=== PATIENT | male | born 1980 | race Caucasian/White ===

== ENCOUNTER 2017-09-13 19:32 | Emergency (ER) | payer OTHER ==
--- NOTE | 2017-09-13 20:58 | XRAY Report ---
EXAM: LEFT THIRD DIGIT RADIOGRAPHY EXAM DATE: 09/13/2017 08:35 PM. CLINICAL HISTORY: Trauma, pain. COMPARISON: None. TECHNIQUE: 3 views. FINDINGS: Bones: Normal. No fracture or bone lesion. Joints: Normal. No subluxations. Soft Tissues: Unremarkable. IMPRESSION: Normal digit radiography. [facility] Referring Provider Line: [phone] SITE ID: [id number]
--- NOTE | 2017-09-13 21:53 | ED Physician Documentation ---
PD HPI UPPER EXT INJURY - Stated complaint Stated Complaint: FINGER LAC - Chief complaint Chief Complaint: Ext Problem - History obtained from History obtained from: Patient - History of Present Illness Location: Left, Finger (left 3rd digit) Type of injury: Crush (caught in closing door) Where injury occurred: Home Timing - onset: Enter time (18:00). No: Today Timing - details: Abrupt onset Pain level now: 8 Improved by: Rest Worsened by: Moving, Palpating Associated symptoms: Swelling, Discolored. No: Weakness, Numbness Recently seen: Not recently seen - Additonal information Additional information: patient is right-hand dominant. Review of Systems Musculoskeletal: reports: Extremity pain (left 3rd digit), Extremity swelling ( left 3rd digit) Neurologic: denies: Focal weakness, Numbness PD PAST MEDICAL HISTORY - Past Medical History Past Medical History: No - Present Medications Home Medications: Ambulatory Orders Medication Instructions Recorded Confirmed Cephalexin [Keflex] 500 mg PO Q6H 7 Days capsule 11/26/15 oxyCODONE/ACET 5/325 [Percocet 5 1 - 2 each PO Q6H PRN #14 tablet 09/13/17 mg/325 mg] - Allergies Allergies/Adverse Reactions: Allergies Allergy/AdvReac Type Severity Reaction Status Date / Time No Known Drug Allergies Allergy Verified 11/26/15 20:11 - Social History Does the pt smoke?: Yes Smoking Status: Current every day smoker Does the pt drink ETOH?: Yes - Immunizations Immunizations are current?: Yes PD ED PE NORMAL - Vitals Vital signs reviewed: Yes - General General: Alert and oriented X 3, No acute distress, Well developed/nourished PD ED PE EXPANDED - Extremities YIFAN UE/Hands Visual: 1 - bruising (echymosis at tip but no subungual involvement and nail itself it intact) 2 - laceration (avulsed skin on pad of finger, no exposed bone) Results - Vitals Vitals: Vital Signs - 24 hr 09/13/17 09/13/17 19:43 22:47 Temperature 36.4 C L 36.7 C Heart Rate 78 66 Respiratory 18 20 Rate Blood Pressure 144/92 H 124/75 O2 Saturation 97 98 Oxygen O2 Source Room air - Rads (name of study) xrays left third digit Radiology: Prelim report reviewed, See rad report PD MEDICAL DECISION MAKING - ED course Complexity details: reviewed results, re-evaluated patient, considered differential, d/w patient Departure - Departure Disposition: Home, Self Care Clinical Impression: Injury of tip of finger of left hand Condition: Good Instructions: ED Crush Injury Finger No Fx, ED Hypertension Poss Follow-Up: Tootie Dowell PA-C [Primary Care Provider] - Within 1 week Prescriptions: oxyCODONE/ACET 5/325 [Percocet 5 mg/325 mg] 1 - 2 each PO Q6H PRN #14 tablet PRN Reason: Pain Forms: Activity restrictions Discharge Date/Time: 09/13/17 22:53
[2017-09-13] MEDS ORDERED: BACITRACIN OINT TOP STA (22:20)
[2017-09-13] MEDS ORDERED: oxyCOD/ACETAMIN 5 MG/325 MG TABLET PO STA (22:20)
[2017-09-13] MEDS ORDERED: oxyCODONE/ACET 5/325 Prepack 4 PO STA (22:30)
[2017-09-13 22:47] VITALS: BP 124/75
== END 2017-09-13 22:53 | disposition home or self-care (01) ==
LOC: ED 19:32
DX: S61.213A Laceration without foreign body of left middle finger without damage to nail, initial encounter (principal); W23.0XXA Caught, crushed, jammed, or pinched between moving objects, initial encounter; F17.200 Nicotine dependence, unspecified, uncomplicated
CPT/HCPCS: 73140; 99283; A9270

== ENCOUNTER 2018-01-30 11:37 | Outpatient (CLI) | payer OTHER ==
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
== END 2018-01-30 11:38 | disposition home or self-care (01) ==
LOC: DI 11:37
PROVIDERS: ATTEND Physician Assistant
DX: M25.561 Pain in right knee (principal)

== ENCOUNTER 2018-08-30 12:35 | Outpatient (CLI) | payer SELFPAY ==
[2018-08-31 12:58] LABS: HIV AG/AB 4TH GEN NON-REACTIVE (NON-REACTIVE)
[2018-08-31 13:20] LABS: HEPATITIS C ANTIBODY NON-REACTIVE (NON-REACTIVE)
[2018-09-01 13:26] LABS: HSV 1 IGG TYPE SPECIFIC AB <0.90 index; HSV 2 IGG TYPE SPECIFIC AB <0.90 index
== END 2018-08-30 12:36 | disposition home or self-care (01) ==
LOC: LAB.F 12:35
PROVIDERS: ATTEND Family Medicine
DX: Z11.3 Encounter for screening for infections with a predominantly sexual mode of transmission (principal)
CPT/HCPCS: 36415; 81599; 86592; 86695; 86696; 86803; 87389; 87491; 87591

== ENCOUNTER 2019-02-17 13:35 | Emergency (ER) | payer SELFPAY ==
[2019-02-17 13:40] VITALS: BP 168/113
--- NOTE | 2019-02-17 13:51 | ED Physician Documentation ---
History of Present Illness - Stated complaint Stated Complaint: TOOTH PX - Chief complaint Chief Complaint: General - History obtained from History obtained from: Patient - History of Present Illness Timing: Other (A filling came out a few weeks ago now worsening pain. No relief with tylenol/ibuprofen.) Review of Systems Constitutional: reports: Reviewed and negative Ears: reports: Reviewed and negative Nose: reports: Reviewed and negative PD PAST MEDICAL HISTORY - Present Medications Home Medications: Ambulatory Orders Medication Instructions Recorded Confirmed Clindamycin HCl [Clindamycin 300MG 300 mg PO Q6H #40 capsule 02/17/19 CAP] Hydrocodone/Acetaminophen 1 - 2 each PO Q6H PRN #14 tablet 02/17/19 [Hydrocodon-Acetaminophen 5-325] - Allergies Allergies/Adverse Reactions: Allergies Allergy/AdvReac Type Severity Reaction Status Date / Time No Known Drug Allergies Allergy Verified 02/17/19 13:40 - Social History Does the pt smoke?: Yes Smoking Status: Current every day smoker Does the pt drink ETOH?: Yes - Immunizations Immunizations are current?: Yes PD ED PE NORMAL - Vitals Vital signs reviewed: Yes - General General: Alert and oriented X 3, No acute distress - HEENT HEENT: Other (Tooth in question is a right mandibular premolar with mild overlying gingival and facial swelling but no trismus, sublingual edema.) - Neuro Neuro: Alert and oriented X 3, Normal speech Results - Vitals Vitals: Vital Signs - 24 hr 02/17/19 13:38 Temperature 36.2 C L Heart Rate 90 Respiratory 14 Rate Blood Pressure 168/113 H O2 Saturation 99 Oxygen O2 Source Room air Departure - Departure Disposition: 01 Home, Self Care Clinical Impression: Dental abscess Condition: Good Record reviewed to determine appropriate education?: Yes Health Concerns: dental pain Plan of Treatment: Antibiotics and painkillers, follow-up with a dentist. Patient refused inferior alveolar block. It is very important that you follow-up with a dentist. When it comes to dental problems like yours, the emergency department can only offer a short-term solution to your long-term problem. A couple of low cost options for dental care include: [facility] in [place], calls [phone] for an appointment Or [facility] in [place], call [phone] for an appointment. Care Goals: Do not drink or drive while taking narcotic pain medication. Note that many narcotic pain relievers also contain Tylenol/acetaminophen. Please ensure that your total dose of acetaminophen from all sources does not exceed 3 g (3000 mg) per day. You may get constipated while on this medication. Take a stool softener such as Colace twice a day while you are on it. Also add an aiyv-vwj-wxyeast laxative such as senna or MiraLAX on any day that you do not have a bowel movement. If you received a narcotic pain medication or sedative while in the emergency department, do not drive for the next 24 hours. Assessment: Your blood pressure was elevated today on check into the emergency department. This does not mean that you have hypertension, it is a common phenomenon to come to the emergency department and have elevated blood pressure. I recommend that you see your primary care physician within the week to have it rechecked when you are feeling better. Instructions: ED Dental Abscess Facial Cellulitis Prescriptions: Clindamycin HCl [Clindamycin 300MG CAP] 300 mg PO Q6H #40 capsule Hydrocodone/Acetaminophen [Hydrocodon-Acetaminophen 5-325] 1 - 2 each PO Q6H PRN #14 tablet PRN Reason: pain
[2019-02-17] MEDS ORDERED: HYDROcod/ACETAM 5/325 MG TABLET PO STA (13:55)
[2019-02-17] MEDS ORDERED: CLINDAMYCIN 150 MG CAPSULE PO STA (13:56)
== END 2019-02-17 14:04 | disposition home or self-care (01) ==
LOC: ED 13:35
DX: K04.7 Periapical abscess without sinus (principal); R03.0 Elevated blood-pressure reading, without diagnosis of hypertension; F17.200 Nicotine dependence, unspecified, uncomplicated
CPT/HCPCS: 99283; A9270

== ENCOUNTER 2019-08-29 20:23 | Emergency (ER) | payer OTHER ==
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
[2019-08-29] MEDS: HYDROcod/ACETAM 5/325 MG TABLET PO STA (20:38)
[2019-08-29] MEDS: TETANUS/DIPHTHERIA/PERTUSSIS 0.5 ML SYRINGE IM ONE (20:39)
--- NOTE | 2019-08-29 21:14 | XRAY Report ---
Reason: wrist inj Procedure Date: 08/29/2019 Accession Number: [id number] / [id number] Procedure: XR - Wrist 4 View RT CPT Code: Final Report FULL RESULT: EXAM: RIGHT WRIST RADIOGRAPHY EXAM DATE: 08/29/2019 08:52 PM. CLINICAL HISTORY: Trauma, pain. COMPARISON: None. TECHNIQUE: 4 views. FINDINGS: Bones: Normal. No fractures or bone lesions. Joints: Normal. No subluxations. Soft Tissues: Normal. No soft tissue swelling. IMPRESSION: Normal wrist radiography. [facility]
--- NOTE | 2019-08-29 21:28 | CT Report ---
Reason: head inj Procedure Date: 08/29/2019 Accession Number: [id number] / [id number] Procedure: CT - HEAD WO CPT Code: Final Report FULL RESULT: EXAM: CT HEAD EXAM DATE: 08/29/2019 09:05 PM. CLINICAL HISTORY: Head injury. Right-sided pain. COMPARISON: None. TECHNIQUE: Multiaxial CT images were obtained from the foramen magnum to the vertex. Reformats: Sagittal and coronal. IV contrast: None. In accordance with CT protocol optimization, one or more of the following dose reduction techniques were utilized for this exam: automated exposure control, adjustment of mA and/or KV based on patient size, or use of iterative reconstructive technique. FINDINGS: Parenchyma: No intraparenchymal hemorrhage. No evidence of mass, midline shift, or CT findings of infarction. Bettencourt-white differentiation is distinct. Extraaxial Spaces: Normal for age. No subdural or epidural collections identified. Ventricles: Normal in size and position. Sinuses and Orbits: Imaged paranasal sinuses, orbits, and mastoids show no significant abnormality. Bones: No evidence of fracture or calvarial defect. Other: None. IMPRESSION: Normal head CT. [facility]
--- NOTE | 2019-08-29 21:31 | CT Report ---
Reason: neck inj Procedure Date: 08/29/2019 Accession Number: [id number] / [id number] Procedure: CT - CERVICAL SPINE WO CPT Code: Final Report FULL RESULT: EXAM: CT CERVICAL SPINE WITHOUT CONTRAST DATE: 08/29/2019 09:05 PM. HISTORY: Neck inj. COMPARISONS: None. TECHNIQUE: Thin-section axial images were acquired of the cervical spine without contrast. Post-processing: Coronal and sagittal reformats. Other: None. In accordance with CT protocol optimization, one or more of the following dose reduction techniques were utilized for this exam: automated exposure control, adjustment of mA and/or KV based on patient size, or use of iterative reconstructive technique. FINDINGS: Alignment: No scoliosis or spondylolisthesis. Bones: No fracture or bone lesion. Musculature: Normal. No fatty atrophy. Other: The paravertebral and prevertebral soft tissues are unremarkable. The lung apices are clear. IMPRESSION: No acute displaced fracture or malalignment. [facility]
[2019-08-29 21:43] VITALS: BP 140/86
== END 2019-08-29 21:46 | disposition home or self-care (01) ==
LOC: ED 20:23
DX: S01.311A Laceration without foreign body of right ear, initial encounter (principal); S01.411A Laceration without foreign body of right cheek and temporomandibular area, initial encounter; S63.501A Unspecified sprain of right wrist, initial encounter; S19.9XXA Unspecified injury of neck, initial encounter; M54.2 Cervicalgia; W22.8XXA Striking against or struck by other objects, initial encounter; R03.0 Elevated blood-pressure reading, without diagnosis of hypertension; F17.200 Nicotine dependence, unspecified, uncomplicated
CPT/HCPCS: 12013; 70450; 72125; 90471

== ENCOUNTER 2021-01-22 14:46 | Emergency (ER) | payer MEDICAID ==
[2021-01-22] MEDS ORDERED: SODIUM CHLORIDE 0.9% 1,000 ML IV STA (15:25)
--- OUTSIDE RECORDS SUMMARY | 2021-01-22 16:10 | EXTERNAL MEDICAL SUMMARY RPT | Continuity of Care Document ---
:1980 Demographics Phone Unavailable Preferred Language Unknown Marital Status Unknown Advent Affiliation Unknown Race Unknown Ethnic Group Unknown Author Organization [place] Address [address] [id number] Phone Allergies Encounters Medications Problems Results
[2021-01-22 16:13] LABS: CALCIUM 8.9 mg/dL (8.5-10.3); CREATININE 0.9 mg/dL (0.6-1.2); POTASSIUM 4.1 mmol/L (3.5-5.0)
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
[2021-01-22 16:30] LABS: MUDS CUTOFF CONCENTRATIONS CUTOFF CONC BELOW:
[2021-01-22 16:41] LABS: AMPHETAMINE SCREEN,URINE POSITIVE (NEGATIVE); BARBITURATE SCREEN,UR NEGATIVE (NEGATIVE); BENZODIAZEPINES SCREEN, URINE NEGATIVE (NEGATIVE); COCAINE SCREEN URINE NEGATIVE (NEGATIVE); METHADONE SCREEN, URINE NEGATIVE (NEGATIVE); METHAMPHETAMINES SCREEN, URINE NEGATIVE (NEGATIVE); OPIATE SCREEN, URINE NEGATIVE (NEGATIVE); OXYCODONE SCREEN, URINE NEGATIVE (NEGATIVE); PROPOXYPHENE SCREEN, URINE NEGATIVE (NEGATIVE); THC CANNABINOID SCREEN, URINE NEGATIVE (NEGATIVE); TRICYCLIC ANTIDEPRESSANT,URINE NEGATIVE (NEGATIVE)
[2021-01-22 17:08] VITALS: BP 154/94
== END 2021-01-22 17:13 | disposition home or self-care (01) ==
LOC: ED 14:46
DX: E86.0 Dehydration (principal); T67.5XXA Heat exhaustion, unspecified, initial encounter; X30.XXXA Exposure to excessive natural heat, initial encounter; Y93.89 Activity, other specified; F17.200 Nicotine dependence, unspecified, uncomplicated
CPT/HCPCS: 36415; 80048; 80306; 82550; 93005; 99282; 99283

== ENCOUNTER 2021-03-09 08:00 | Outpatient (CLI) | payer MEDICAID | END 2021-03-09 23:59 | disposition home or self-care (01) | LOC: LAB.S 08:00 | PROVIDERS: ATTEND Emergency Medicine | DX: L02.811 Cutaneous abscess of head [any part, except face] (principal) | CPT/HCPCS: 87070; 87181; 87205 ==

== ENCOUNTER 2022-08-23 08:00 | Outpatient (CLI) | payer MEDICAID ==
[2022-08-26 16:28] LABS: CHLAMYDIA TRACHOMATIS DNA NEGATIVE (NEGATIVE)
[2022-08-26 16:29] LABS: NEISSERIA GONORRHOEAE DNA POSITIVE (NEGATIVE)
== END 2022-08-23 23:59 | disposition home or self-care (01) ==
LOC: LAB 08:00
PROVIDERS: ATTEND Physician Assistant Medical
DX: A54.9 Gonococcal infection, unspecified (principal)
CPT/HCPCS: 87491; 87591; 87661

== ENCOUNTER 2022-11-18 09:50 | Outpatient (CLI) | payer MEDICAID ==
--- NOTE | 2022-11-18 10:28 | XRAY Report ---
PROCEDURE: Chest 2 View X-Ray INDICATIONS: URI TECHNIQUE: 2 views of the chest were acquired. COMPARISON: None. FINDINGS: Surgical changes and devices: None. Lungs and pleura: No pleural effusions or pneumothorax. Lungs are clear. Mediastinum: Mediastinal contours appear normal. Heart size is normal. Bones and chest wall: No suspicious bony lesions. Overlying soft tissues appear unremarkable. IMPRESSION: No acute finding. Reviewed by: Vin Bang MD on 11/18/2022 10:27 AM PDT Approved by: Vin Bang MD on 11/18/2022 10:27 AM PDT Station ID: [id number]
== END 2022-11-18 09:51 | disposition home or self-care (01) ==
LOC: DI 09:50
PROVIDERS: ATTEND Family Medicine
DX: J06.9 Acute upper respiratory infection, unspecified (principal)

== ENCOUNTER 2023-05-24 09:19 | Outpatient (CLI) | payer MEDICAID ==
[2023-05-24 14:37] LABS: BASOPHILS # (AUTO) 0.1 10^3/uL (0.0-0.1); BASOPHILS % (AUTO) 1.1 %; EOSINOPHILS # (AUTO) 0.2 10^3/uL (0.0-0.7); EOSINOPHILS % (AUTO) 3.2 %; HCT - HEMATOCRIT 51.1 % (42.0-52.0); HGB - HEMOGLOBIN 16.4 g/dL (14.0-18.0); LYMPHOCYTES # (AUTO) 1.4 10^3/uL (1.5-3.5); LYMPHOCYTES % (AUTO) 29.5 %; MEAN CORPUSCULAR HEMOGLOBIN 31.8 pg (27.0-31.0); MEAN CORPUSCULAR HGB CONC 32.1 g/dL (32.0-36.0); MEAN PLATELET VOLUME 10.4 fL (7.4-11.4); MONOCYTES # (AUTO) 0.4 10^3/uL (0.0-1.0); MONOCYTES % (AUTO) 8.4 %; NEUTROPHILS # (AUTO) 2.7 10^3/uL (1.5-6.6); NEUTROPHILS % (AUTO) 57.6 %; PLT - PLATELET COUNT 234 10^3/uL (130-450); RED BLOOD COUNT 5.16 10^6/uL (4.70-6.10); RED CELL DISTRIBUTION WIDTH 12.4 % (12.0-15.0); WHITE BLOOD COUNT 4.8 x10^3/uL (4.8-10.8)
[2023-05-24 15:02] LABS: ALBUMIN 4.5 g/dL (3.2-5.5); ALBUMIN/GLOBULIN RATIO 1.8 (1.0-2.2); ALKALINE PHOSPHATASE 92 IU/L (42-121); ALT ALANINE AMINOTRANSFERASE 26 IU/L (10-60); AST ASPARTATE AMINOTRANSFERASE 23 IU/L (10-42); BILIRUBIN,TOTAL 0.6 mg/dL (0.2-1.0); BUN - BLOOD UREA NITROGEN 12 mg/dL (6-20); CALCIUM 9.4 mg/dL (8.5-10.3); CARBON DIOXIDE - CO2 29 mmol/L (21-32); CHLORIDE 105 mmol/L (101-111); CHOL/HDL RATIO 5.4 (<5.0); CHOLESTEROL 215 mg/dL; CREATININE 0.9 mg/dL (0.6-1.3); GFR - MDRD 93 (>89); GLUCOSE 98 mg/dL (74-104); HDL CHOLESTEROL 40 mg/dL; LDL CHOLESTEROL,CALCULATED 149 mg/dL; LDL/HDL RATIO 3.7 (<3.6); POTASSIUM 4.3 mmol/L (3.5-4.5); SODIUM 138 mmol/L (135-145); TRIGLYCERIDES 130 mg/dL (48-352); VLDL CHOLESTEROL 26 mg/dL
[2023-05-24 20:22] LABS: CHLAMYDIA TRACHOMATIS DNA NEGATIVE (NEGATIVE); NEISSERIA GONORRHOEAE DNA NEGATIVE (NEGATIVE); TRICHOMONAS VAGINALIS DNA NEGATIVE (NEGATIVE)
[2023-05-25 02:08] LABS: HCV AB Non Reactive (Non Reactive); HIV SCREEN 4TH GENERATION Non Reactive (Non Reactive)
[2023-05-25 07:10] LABS: RPR Non Reactive (Non Reactive)
== END 2023-05-24 09:20 | disposition home or self-care (01) ==
LOC: LAB.S 09:19
PROVIDERS: ATTEND Physician Assistant Medical
DX: Z11.3 Encounter for screening for infections with a predominantly sexual mode of transmission (principal); R22.1 Localized swelling, mass and lump, neck
CPT/HCPCS: 36415; 80053; 80061; 83721; 85025; 86592; 86803; 87389; 87491; 87591; 87661

== ENCOUNTER 2023-08-31 16:26 | Emergency (ER) | payer MEDICAID ==
[2023-08-31 16:46] VITALS: BP 156/101; O2SAT 100
[2023-08-31 16:59] LABS: BASOPHILS # (AUTO) 0.1 10^3/uL (0.0-0.1); BASOPHILS % (AUTO) 1.1 %; EOSINOPHILS # (AUTO) 0.3 10^3/uL (0.0-0.7); EOSINOPHILS % (AUTO) 3.9 %; HCT - HEMATOCRIT 45.7 % (42.0-52.0); HGB - HEMOGLOBIN 15.5 g/dL (14.0-18.0); LYMPHOCYTES # (AUTO) 2.2 10^3/uL (1.5-3.5); MEAN CORPUSCULAR HEMOGLOBIN 31.1 pg (27.0-31.0); MEAN CORPUSCULAR HGB CONC 33.9 g/dL (32.0-36.0); MEAN CORPUSCULAR VOLUME 91.8 fL (80.0-94.0); MEAN PLATELET VOLUME 10.1 fL (7.4-11.4); MONOCYTES # (AUTO) 0.6 10^3/uL (0.0-1.0); NEUTROPHILS % (AUTO) 55.7 %; PLT - PLATELET COUNT 222 10^3/uL (130-450); RED BLOOD COUNT 4.98 10^6/uL (4.70-6.10); RED CELL DISTRIBUTION WIDTH 12.5 % (12.0-15.0); WHITE BLOOD COUNT 7.2 x10^3/uL (4.8-10.8)
[2023-08-31 17:31] LABS: TROPONIN I HIGH SENSITIVITY 4.2 ng/L (2.3-19.7)
--- NOTE | 2023-08-31 17:42 | Ultrasound Report ---
PROCEDURE: Duplex Ext Veins Right INDICATIONS: swelling TECHNIQUE: Real-time imaging, as well as color and pulse Doppler interrogation, were performed of the lower extr emity deep veins from the inguinal ligament to the popliteal fossa. Attempted visualization of the ca lf veins was performed. COMPARISON: None. FINDINGS: The deep veins are normally compressible, and free of intraluminal thrombus. Color and pu lse Doppler demonstrate normal phasic intraluminal flow. There is normal augmentation response to di stal compression maneuver. IMPRESSION: No deep venous thrombosis of the visualized lower extremity. Reviewed by: Javi Sarah MD on 08/31/2023 5:40 PM PST Approved by: Javi Sarah MD on 08/31/2023 5:40 PM PST Station ID: [id number]
[2023-08-31 17:50] LABS: ALBUMIN 4.4 g/dL (3.2-5.5); ALBUMIN/GLOBULIN RATIO 1.8 (1.0-2.2); BILIRUBIN,TOTAL 0.5 mg/dL (0.2-1.0); CALCIUM 9.3 mg/dL (8.5-10.3); CREATININE 0.9 mg/dL (0.6-1.3); POTASSIUM 3.8 mmol/L (3.5-4.5); TOTAL PROTEIN 6.9 g/dL (6.4-8.9)
--- NOTE | 2023-08-31 18:31 | XRAY Report ---
PROCEDURE: Chest 1V INDICATIONS: Chest pain TECHNIQUE: One view of the chest was acquired. COMPARISON: 11/18/2022 FINDINGS: Surgical changes and devices: None. Lungs and pleura: No pleural effusions or pneumothorax. Lungs are clear. Mediastinum: Mediastinal contours appear normal. Heart size is normal. Bones and chest wall: No suspicious bony lesions. Overlying soft tissues appear unremarkable. IMPRESSION: No acute cardiopulmonary process. Reviewed by: Javi Sarah MD on 08/31/2023 6:29 PM [facility] [[email or web address]] Approved by: Javi Sarah MD on 08/31/2023 6:29 PM [facility] [[email or web address]] Station ID: [id number]
[2023-08-31] MEDS ORDERED: DEXAMETHASONE 10 MG/ML VIAL IM STA (18:48)
[2023-08-31] MEDS ORDERED: KETOROLAC 60 MG/2 ML VIAL IM STA (18:48)
--- NOTE | 2023-09-05 08:20 | ED Physician Documentation ---
PD HPI CHEST PAIN - Stated complaint Stated Complaint: CHEST PX,DIZZY,DUMONT - Chief complaint Chief Complaint: Cardiac - History obtained from History obtained from: Patient - Additional information Additional information: The pt comes to the ED with CC of high blood pressure on and off for the past several days, as well as headache. He has a h/o high blood pressure, but is not currently taking meds. No fevers or chills. He has had some SOB and leg swelling. Intermittent chest pain. No h/o DM or CAD that he knows of. Denies drugs. Was seen at walk-in clinic and sent here over worry for DVT/PE. No h/o this. Pt does smoke. No current CP. Pt's main complaint currently is a headache in both temples. No neurologic deficits. PD PAST MEDICAL HISTORY - Past Medical History Past Medical History: Yes Cardiovascular: Hypertension - Past Surgical History Past Surgical History: Yes General: Appendectomy - Present Medications Home Medications: Ambulatory Orders Medication Instructions Recorded Confirmed No Known Home Medications 01/22/21 08/31/23 - Allergies Allergies/Adverse Reactions: Allergies Allergy/AdvReac Type Severity Reaction Status Date / Time No Known Drug Allergies Allergy Verified 08/31/23 16:40 - Social History Does the pt smoke?: Yes Smoking Status: Current every day smoker Does the pt drink ETOH?: No Does the pt have substance abuse?: No - Immunizations Immunizations are current?: Yes Immunizations: TDAP current <10years - POLST Patient has POLST: No PD ED PE NORMAL - Vitals Vital signs reviewed: Yes - General General: Alert and oriented X 3, No acute distress, Well developed/nourished - HEENT HEENT: Atraumatic, PERRL, EOMI, Moist mucous membranes - Neck Neck: Supple, no meningeal sign - Cardiac Cardiac: RRR, No murmur - Respiratory Respiratory: No respiratory distress, Clear bilaterally - Abdomen Abdomen: Soft, Non tender, Non distended - Derm Derm: Normal color, Warm and dry, No rash - Extremities Extremities: No deformity, Other (Mild edema RLE and minimal calf tenderness. No LLE edema or tenderness.) - Neuro Neuro: Alert and oriented X 3, Other (Grossly intact.) - Psych Psych: Normal mood, Normal affect Results - Vitals Vitals: Oxygen O2 Source Room air - EKG (time done) 1644 EKG releavant findings:: EKG personally interpreted by author of this note. Relevant findings are: Rate: Rate (enter#) (87) Rhythm: NSR [place]: Normal Intervals: Normal [place] QRS: Normal Ischemia: Normal ST segments Compare to prior EKG: Old EKG unavailable Computer interpretation: Agree with computer - Labs Labs: Laboratory Tests 08/31/23 08/31/23 16:55 16:55 WBC 7.2 RBC 4.98 Hgb 15.5 Hct 45.7 MCV 91.8 MCH 31.1 H MCHC 33.9 RDW 12.5 Plt Count 222 MPV 10.1 Neut # (Auto) 4.0 Lymph # (Auto) 2.2 [place] # (Auto) 0.6 Eos # (Auto) 0.3 Baso # (Auto) 0.1 Absolute Nucleated RBC 0.00 Nucleated RBC % 0.0 Sodium 136 Potassium 3.8 Chloride 102 Carbon Dioxide 30 Anion Gap 4.0 L BUN 18 Creatinine 0.9 Estimated GFR (MDRD) 93 Glucose 97 Calcium 9.3 Total Bilirubin 0.5 AST 17 ALT 19 Alkaline Phosphatase 83 Troponin I High Sens 4.2 Total Protein 6.9 Albumin 4.4 Globulin 2.5 Albumin/Globulin Ratio 1.8 Lipase 28 - Rads (name of study) CXR Relevant Findings:: Final report received, See rad report (neg) R venous duplex Relevant Findings:: Final report received, See rad report (neg) PD Medical Decision Making - ED course Complexity details: reviewed results, re-evaluated patient, considered differential, d/w patient ED course: The pt overall appeared well, but was hypertensive in the ED, and had risk factors for both DVT and CAD. Work-up was ordered, including EKG, CXR, venous duplex R leg, and labs including troponin. Work-up was negative. I had ordered medication for the pt, who had had most of his work-up done from the lobby, prior to being brought back to a room. Shortly after my evaluation of the pt, a critical trauma arrived to the ED, requiring prolonged intervention by myself and most of the staff. The pt during this time grew tired of waiting, and told staff he was leaving the ED. I was unaware of this and informed afterward. He had been offered the medication I had ordered, but had reportedly declined, stating he wanted to catch the bus home. Departure - Departure Disposition: ED Elope Clinical Impression: Hypertension Qualifiers: Hypertension type: unspecified Qualified Code(s): I10 - Essential (primary) hypertension Chest pain Qualifiers: Chest pain type: unspecified Qualified Code(s): R07.9 - Chest pain, unspecified Headache Qualifiers: Headache type: tension-type Headache chronicity pattern: unspecified pattern Intractability: not intractable Qualified Code(s): G44.209 - Tension-type headache, unspecified, not intractable Condition: Stable Forms: PCP List Discharge Date/Time: 08/31/23 18:51
== END 2023-08-31 18:51 | disposition left against medical advice (07) ==
LOC: ED 16:26
DX: I10 Essential (primary) hypertension (principal); R07.9 Chest pain, unspecified; G44.209 Tension-type headache, unspecified, not intractable; F17.200 Nicotine dependence, unspecified, uncomplicated
CPT/HCPCS: 36415; 80053; 83690; 84484; 85025; 93005; 99284

== ENCOUNTER 2023-10-11 06:20 | Emergency (ER) | payer MEDICAID ==
[2023-10-11] MEDS ORDERED: iohexoL-300 100 ML VIAL ONE (06:38)
--- NOTE | 2023-10-11 06:38 | ED Physician Documentation ---
PD HPI CHEST PAIN - Stated complaint Stated Complaint: SOA/CHEST PX - History obtained from History obtained from: Patient - Additional information Additional information: 43-year-old male with history of hypertension, tobacco abuse presents by private vehicle from home for chest pain, back pain, abdominal pain, shortness of breath that began approximately 2 hours prior to arrival. Patient states that he was sitting up in bed when symptoms began and have worsened since onset. Patient was seen in our emergency department 1 month prior for chest pain and hypertension, however he states this is much worse. Patient is currently groani ng, writhing on the stretcher, saying he cannot breathe. Oxygen saturations on room air are 100% with good waveform. Review of Systems Constitutional: denies: Fever, Chills Cardiac: reports: Chest pain / pressure. denies: Palpitations Respiratory: reports: Dyspnea. denies: Cough, Wheezing GI: reports: Abdominal Pain, Nausea. denies: Vomiting, Constipation, Diarrhea Neurologic: denies: Generalized weakness, Focal weakness, Numbness PD PAST MEDICAL HISTORY - Past Medical History Cardiovascular: Hypertension - Past Surgical History Past Surgical History: Yes General: Appendectomy - Present Medications Home Medications: Ambulatory Orders Medication Instructions Recorded Confirmed No Known Home Medications 01/22/21 10/11/23 - Allergies Allergies/Adverse Reactions: Allergies Allergy/AdvReac Type Severity Reaction Status Date / Time No Known Drug Allergies Allergy Verified 10/11/23 06:38 - Social History Does the pt smoke?: Yes Smoking Status: Current every day smoker Does the pt drink ETOH?: No Does the pt have substance abuse?: No - Immunizations Immunizations are current?: Yes Immunizations: TDAP current <10years - POLST Patient has POLST: No PD ED PE NORMAL - Vitals Vital signs reviewed: Yes - General General: Alert and oriented X 3, Other (In pain, groaning, writhing on stretcher) - HEENT HEENT: Other (dry mucous membranes, poor dentition) - Cardiac Cardiac: Other (tachycardia, regular rhythm) - Respiratory Respiratory: No respiratory distress, Clear bilaterally - Abdomen Abdomen: Soft, Non distended, Other (generalized tenderness to palpation) - Derm Derm: Normal color, Warm and dry, No rash - Extremities Extremities: No deformity, No tenderness to palpate, Normal ROM s pain - Neuro Neuro: Alert and oriented X 3, 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 Relevant findings are: Rate: Rate (enter#) (98) Rhythm: NSR [place]: Normal Intervals: Normal [place] Ischemia: Normal ST segments PD Medical Decision Making - ED course Complexity details: reviewed results, re-evaluated patient, considered differential, d/w patient ED course: Patient presenting with chest, back, abdominal pain and shortness of breath. Does seem to be in pain, he is groaning, moving all over the stretcher. Blood pressure 150 systolic, which is not terribly high, however based on the patient's reported amount of pain as well as history of hypertension and tobacco abuse will order CT angio to assess for dissection. Pain and nausea medications ordered. Laboratory work and imaging pending. Care of patient to be signed over to oncoming emergency medicine doctor. Final disposition pending their evaluation and plan. Departure - Departure Clinical Impression: History of hypertension Chest pain Qualifiers: Chest pain type: unspecified Qualified Code(s): R07.9 - Chest pain, unspecified Dyspnea Qualifiers: Dyspnea type: shortness of breath Qualified Code(s): R06.02 - Shortness of breath Abdominal pain Qualifiers: Abdominal location: generalized Qualified Code(s): R10.84 - Generalized abdominal pain Condition: Fair Forms: PCP List
[2023-10-11] MEDS: MORPHINE 2 MG/ML CARPUJECT IVP STA (06:51)
[2023-10-11] MEDS: ONDANSETRON 4 MG/2 ML VIAL IVP STA (06:51)
[2023-10-11] MEDS: SODIUM CHLORIDE 0.9% 1,000 ML IV STA (06:58)
[2023-10-11 07:05] LABS: INR 1.2 (0.8-1.2); PT - PROTHROMBIN TIME 12.9 secs (9.9-12.6)
[2023-10-11 07:15] LABS: ALBUMIN 4.1 g/dL (3.2-5.5); ALBUMIN/GLOBULIN RATIO 1.6 (1.0-2.2); BASOPHILS % (AUTO) 0.9 %; BILIRUBIN,TOTAL 1.2 mg/dL (0.2-1.0); CALCIUM 9.4 mg/dL (8.5-10.3); EOSINOPHILS # (AUTO) 0.1 10^3/uL (0.0-0.7); EOSINOPHILS % (AUTO) 2.9 %; HCT - HEMATOCRIT 51.1 % (42.0-52.0); HGB - HEMOGLOBIN 17.4 g/dL (14.0-18.0); LYMPHOCYTES # (AUTO) 0.9 10^3/uL (1.5-3.5); LYMPHOCYTES % (AUTO) 19.2 %; MEAN CORPUSCULAR HGB CONC 34.1 g/dL (32.0-36.0); MEAN CORPUSCULAR VOLUME 90.9 fL (80.0-94.0); MEAN PLATELET VOLUME 10.8 fL (7.4-11.4); MONOCYTES # (AUTO) 0.4 10^3/uL (0.0-1.0); MONOCYTES % (AUTO) 8.6 %; NEUTROPHILS % (AUTO) 68.2 %; PLT - PLATELET COUNT 181 10^3/uL (130-450); POTASSIUM 4.6 mmol/L (3.5-4.5); RED BLOOD COUNT 5.62 10^6/uL (4.70-6.10); RED CELL DISTRIBUTION WIDTH 12.5 % (12.0-15.0); TOTAL PROTEIN 6.6 g/dL (6.4-8.9); WHITE BLOOD COUNT 4.4 x10^3/uL (4.8-10.8)
[2023-10-11 07:36] LABS: BILIRUBIN,URINE NEGATIVE (NEGATIVE); GLUCOSE, URINE (UA) NEGATIVE (NEGATIVE); KETONES,URINE (UA) NEGATIVE (NEGATIVE); LEUKOCYTE ESTERASE, URINE NEGATIVE (NEGATIVE); NITRITE,URINE NEGATIVE (NEGATIVE); OCCULT BLOOD,URINE NEGATIVE (NEGATIVE); PROTEIN,URINE NEGATIVE (NEGATIVE); UROBILINOGEN,URINE 0.2 (NORMAL) E.U./dL (NORMAL)
[2023-10-11] MEDS: KETOROLAC 15 MG/ML VIAL IVP STA (07:45)
[2023-10-11 07:52] LABS: AMPHETAMINE SCREEN,URINE POSITIVE (NEGATIVE); CLARITY,URINE CLEAR (CLEAR); COCAINE SCREEN URINE POSITIVE (NEGATIVE); METHAMPHETAMINES SCREEN, URINE POSITIVE (NEGATIVE); OPIATE SCREEN, URINE POSITIVE (NEGATIVE); THC CANNABINOID SCREEN, URINE POSITIVE (NEGATIVE)
--- NOTE | 2023-10-11 07:58 | XRAY Report ---
PROCEDURE: Chest 1V INDICATIONS: CHEST PAIN TECHNIQUE: One view of the chest was acquired. COMPARISON: Chest x-ray 08/31/2023. FINDINGS: Surgical changes and devices: None. Lungs and pleura: No pleural effusions or pneumothorax. Lungs are clear. Mediastinum: Mediastinal contours appear normal. Heart size is normal. Bones and chest wall: No suspicious bony lesions. Overlying soft tissues appear unremarkable. IMPRESSION: No acute cardiopulmonary process. The above findings are concordant with preliminary report. Reviewed by: Fabiola Rosa MD on 10/11/2023 7:56 AM PST Approved by: Fabiola Rosa MD on 10/11/2023 7:56 AM PST Station ID: [id number]
[2023-10-11 08:06] LABS: BARBITURATE SCREEN,UR NEGATIVE (NEGATIVE); BENZODIAZEPINES SCREEN, URINE NEGATIVE (NEGATIVE); BUPRENORPHINE SCREEN, URINE NEGATIVE (NEGATIVE); METHADONE SCREEN, URINE NEGATIVE (NEGATIVE); OXYCODONE SCREEN, URINE NEGATIVE (NEGATIVE); TRICYCLIC ANTIDEPRESSANT,URINE NEGATIVE (NEGATIVE)
--- NOTE | 2023-10-11 08:27 | CT Report ---
PROCEDURE: Angio Chest INDICATIONS: CHEST/BACK/ABD PAIN CONTRAST: omni 300 100ml TECHNIQUE: After the administration of intravenous contrast, 2 mm axial images were acquired from the pulmonary apices to the posterior costophrenic angles during the arterial phase. In addition, 1 mm lung kernel and 5 mm soft tissue kernel reconstructions were performed. 3-dimensional coronal oblique maximum int ensity projection (MIP) reformats, 8 mm axial MIP, and 5 mm coronal and sagittal MPR reformats were t hen performed through the thorax. For radiation dose reduction, the following was used: automated exp osure control, adjustment of mA and/or kV according to patient size. COMPARISON: Chest x-ray, 10/11/2023. FINDINGS: Image quality: Excellent. Large vessels: No filling defects within the opacified pulmonary arteries, accounting for motion and contrast timing. No evidence of acute aortic syndrome or aortic aneurysm. Lungs and pleura: No consolidation. No pleural effusions. No pneumothorax. No suspicious pulmonary n odules which require follow up. Mediastinum: Heart size is normal. No pericardial effusion. No large vessel abnormality. No mediastin al adenopathy by size criteria. Chest wall and lower neck: Thyroid is unremarkable. No axillary or supraclavicular adenopathy by size . Bones: No aggressive osseous abnormality. Mild spondylitic changes noted in thoracic spine. Upper Abdomen: Unremarkable. IMPRESSION: 1. No pulmonary embolus. 2. No acute cardiopulmonary process. Reviewed by: Brennan Hunt MD on 10/11/2023 8:26 AM PST Approved by: Brennan Hunt MD on 10/11/2023 8:26 AM PST Station ID: [id number]
--- NOTE | 2023-10-11 09:12 | ED Physician Documentation ---
ED Addendum - Addendum Addendum: 10/11/23 09:09 The patient states his pain is considerably improved. Very mild at this time. He had been given just a small dose of morphine as well as Zofran antiemetic and I added Toradol anti-inflammatory. His basic labs including CBC and chemistry panel and troponin are normal. EKG was without any acute abnormalities. Plain chest x-ray was normal. However given the character of the pain, is CT of the chest was ordered and this resulted just now with normal findings. In p articular no pneumothorax, effusions, lung tumors. No lymph nodes. Also pertinent negatives of no aortic aneurysms or dissections and no blood clots. The patient is relieved of these findings. I gave him a copy of his CT report. We will presume some musculoskeletal type pain or pleurisy. He has not not felt well for a few days but no cough or vomiting. He denies pain with eating. It does not sound esophageal therefore. No signs of elevated LFTs or lipase on blood testing. Presume musculoskeletal and go with some NSAIDs as well as antiemetics and pain medicine in the short-term. He does not have any any form concerning for opiate abuse. Disposition: Patient discharged home in stable condition. Diagnoses: 1. Chest pain of uncertain etiology 2. Recent fatigue/illness.
[2023-10-11 09:55] VITALS: BP 141/82; O2SAT 97
[2023-10-11] MEDS: iohexoL-300 100 ML VIAL IVP ONE (10:45)
== END 2023-10-11 09:50 | disposition home or self-care (01) ==
LOC: ED 06:20
DX: R07.9 Chest pain, unspecified (principal); R10.84 Generalized abdominal pain; R06.02 Shortness of breath; R53.83 Other fatigue; R11.0 Nausea; F14.90 Cocaine use, unspecified, uncomplicated; F15.90 Other stimulant use, unspecified, uncomplicated; R00.0 Tachycardia, unspecified; I10 Essential (primary) hypertension; F17.200 Nicotine dependence, unspecified, uncomplicated
CPT/HCPCS: 36415; 71045; 71275; 80053; 80306; 81003; 82550; 83690; 83880; 84484; 85025; 85610; 93005; 96374; 96375; 99284; Q9967; 81001; 87086

== ENCOUNTER 2023-11-18 08:00 | Outpatient (CLI) | payer MEDICAID ==
[2023-11-18 22:14] LABS: CHLAMYDIA TRACHOMATIS DNA NEGATIVE (NEGATIVE); NEISSERIA GONORRHOEAE DNA NEGATIVE (NEGATIVE); TRICHOMONAS VAGINALIS DNA NEGATIVE (NEGATIVE)
== END 2023-11-18 23:59 | disposition home or self-care (01) ==
LOC: LAB.S 08:00
PROVIDERS: ATTEND Physician Assistant Medical
DX: Z20.2 Contact with and (suspected) exposure to infections with a predominantly sexual mode of transmission (principal)
CPT/HCPCS: 87491; 87591; 87661

== ENCOUNTER 2023-11-22 11:50 | Outpatient (CLI) | payer MEDICAID ==
[2023-11-23 03:10] LABS: HIV SCREEN 4TH GENERATION Non Reactive (Non Reactive)
[2023-11-23 05:12] LABS: RPR Non Reactive (Non Reactive)
[2023-11-23 06:11] LABS: HBsAG SCREEN Negative (Negative); HEPATITIS B SURFACE AB QUANT <3.1 mIU/mL (Immunity>9.9)
== END 2023-11-22 11:51 | disposition home or self-care (01) ==
LOC: LAB 11:50
PROVIDERS: ATTEND Physician Assistant Medical
DX: Z20.2 Contact with and (suspected) exposure to infections with a predominantly sexual mode of transmission (principal)
CPT/HCPCS: 36415; 86317; 86592; 86803; 87340; 87389

== ENCOUNTER 2024-02-18 14:11 | Emergency (ER) | payer MEDICAID ==
--- NOTE | 2024-02-18 14:40 | ED Physician Documentation ---
PD HPI HEENT - Stated complaint Stated Complaint: LT CHEEK SWELLING - Chief complaint Chief Complaint: Heent - History obtained from History obtained from: Patient - Additional information Additional information: 43-year-old gentleman with history of tobacco use and a history of methamphetamine abuse has had bad teeth and has not seen a dentist in several years. He had mild pain from a left maxillary premolar last night which worsened today with mild facial swelling on the left. No fevers. PD PAST MEDICAL HISTORY - Past Medical History Past Medical History: Yes Cardiovascular: Hypertension Respiratory: None Neuro: None Endocrine/Autoimmune: None GI: None : None HEENT: None Psych: None Musculoskeletal: None Derm: None - Past Surgical History Past Surgical History: Yes General: Appendectomy - Present Medications Home Medications: Ambulatory Orders Medication Instructions Recorded Confirmed Amox/Clav 875/125 [Augmentin] 1 each PO Q12H #20 tablet 02/18/24 Dextroamphetamine/Amphetamine 20 mg PO DAILY 02/18/24 02/18/24 [Adderall 20 mg Tablet] HYDROcod/ACETAM 5/325 [[place] 5/325] 1 - 2 tab PO Q6H PRN #15 tablet 02/18/24 Ibuprofen [Motrin] 800 mg PO Q8H PRN #30 tablet 02/18/24 - Allergies Allergies/Adverse Reactions: Allergies Allergy/AdvReac Type Severity Reaction Status Date / Time No Known Drug Allergies Allergy Verified 02/18/24 14:31 - Social History Does the pt smoke?: Yes Smoking Status: Current every day smoker Does the pt drink ETOH?: No Does the pt have substance abuse?: No - Immunizations Immunizations are current?: No Immunizations: Other immun not current - POLST Patient has POLST: No PD ED PE NORMAL - Vitals Vital signs reviewed: Yes - General General: Alert and oriented X 3, No acute distress - HEENT HEENT: Other (Poor dentition with generally carious teeth some down to the gumline. Some gumline tenderness to the lateral top left with mild overlying facial swelling. No obvious abscess that can be drained. No trismus or sublingual edema.) - Neck Neck: Supple, no meningeal sign, No bony TTP - Neuro Neuro: Alert and oriented X 3 Results - Vitals Vitals: Vital Signs - 24 hr 02/18/24 14:31 Temperature 36.5 C Heart Rate 80 Respiratory 16 Rate Blood Pressure 124/83 H O2 Saturation 99 Oxygen O2 Source Room air PD Medical Decision Making - ED course ED course: The patient Was counseled as to the diagnosis and need for follow-up. I couns eled the patient with regard to signs and symptoms that would necessitate an urgent reevaluation in the emergency department. They understand they are welcome to return at any time if worse or if not improving as expected. This document was made in part using voice recognition software. While efforts are made to proofread this documents, sound alike and grammatical errors may occur. Departure - Departure Disposition: 01 Home, Self Care Clinical Impression: Dental abscess Condition: Good Record reviewed to determine appropriate education?: Yes Instructions: ED Dental Abscess Facial Cellulitis Follow-Up: KEEGAN SNYDER [Physician No Access] - Prescriptions: Amox/Clav 875/125 [Augmentin] 1 each PO Q12H #20 tablet Ibuprofen [Motrin] 800 mg PO Q8H PRN #30 tablet PRN Reason: PAIN &/OR FEVER HYDROcod/ACETAM 5/325 [[place] 5/325] 1 - 2 tab PO Q6H PRN #15 tablet PRN Reason: Pain Comments: I sent your prescription electronically to [facility] in [place]. It is very important that you follow-up with a dentist. When it comes to dental problems like yours, the emergency department can only offer a short-term solution to your long-term problem. A couple of low cost options for dental care include: [facility] in [place], calls [phone] for an appointment Or [facility] in [place], call [phone] for an appointment. Also above on this form is the name of a oral surgeon which is really what you need though. I am prescribing a short course of narcotic pain medication for you. These are potentially dangerous and addictive medications that should be used carefully. These medications may constipate you. Take an [id number] stool softener (docusate) twice daily with plenty of water while taking these medications. If you go 24 hours without a bowel movement, take [id number] miralax, per package instructions. Do not drink or drive while taking these medications. If you received narcotic or sedating medications while in the emergency department, do not drive for 24 hours. Store this medication in a safe, secure place and out of reach of children. It is a violation of federal law to give or sell this medication to another person or to use in a manner other than prescribed. The ED will not refill narcotic prescriptions, including prescriptions lost or stolen. To dispose of unwanted medications: 1. [facility] a [facility] box for medication in pill form only (no liquids) 8:00 am to 4:30 p.m. Monday-Monday in the lobby of the [facility], [address] [place] [address]. Empty pills into ziplock bag before disposal. Call [phone] for information. 2.[employer] is a free service available to all [facility] residents. Go to [email or web address] Note that many narcotic pain relievers also contain Tylenol/acetaminophen. Please ensure that your total dose of acetaminophen from all sources does not exceed 3 g (3000 mg) per day.
[2024-02-18 14:43] VITALS: BP 124/83; O2SAT 99
== END 2024-02-18 14:40 | disposition home or self-care (01) ==
LOC: ED 14:11
DX: K04.7 Periapical abscess without sinus (principal); I10 Essential (primary) hypertension; F17.200 Nicotine dependence, unspecified, uncomplicated; Z79.899 Other long term (current) drug therapy
CPT/HCPCS: 99283

== ENCOUNTER 2024-03-07 20:11 | Emergency (ER) | payer MEDICAID ==
[2024-03-07 20:24] VITALS: BP 158/113; O2SAT 100
--- NOTE | 2024-03-07 20:29 | ED Physician Documentation ---
PD HPI HEENT - Stated complaint Stated Complaint: TOOTH PX - Chief complaint Chief Complaint: Heent PD PAST MEDICAL HISTORY - Past Medical History Past Medical History: No Cardiovascular: Hypertension Respiratory: None Neuro: None Endocrine/Autoimmune: None GI: None : None HEENT: None Psych: None Musculoskeletal: None Derm: None - Past Surgical History Past Surgical History: Yes General: Appendectomy - Present Medications Home Medications: Ambulatory Orders Medication Instructions Recorded Confirmed Dextroamphetamine/Amphetamine 20 mg PO DAILY 02/18/24 02/18/24 [Adderall 20 mg Tablet] Ibuprofen [Motrin] 800 mg PO Q8H PRN #30 tablet 02/18/24 Amox/Clav 875/125 [Augmentin 1 tablet PO Q12H 7 Days #14 tablet 03/07/24 875/125 Tab] - Allergies Allergies/Adverse Reactions: Allergies Allergy/AdvReac Type Severity Reaction Status Date / Time No Known Drug Allergies Allergy Verified 03/07/24 20:19 - Social History Does the pt smoke?: Yes Smoking Status: Current every day smoker Does the pt drink ETOH?: No Does the pt have substance abuse?: No - Immunizations Immunizations are current?: No Immunizations: Other immun not current - POLST Patient has POLST: No PD ED PE NORMAL - Vitals Vital signs reviewed: Yes - General General: Alert and oriented X 3, No acute distress, Well developed/nourished PD ED PE EXPANDED - HEENT HEENT: Dental decay (Multiple rotting teeth front right tooth appears to be partially broken from tooth decay not from trauma.) Results - Vitals Vitals: Vital Signs - 24 hr 03/07/24 03/07/24 03/07/24 20:13 20:22 21:10 Temperature 36.5 C Heart Rate 84 Respiratory 18 17 17 Rate Blood Pressure 158/113 H O2 Saturation 100 Oxygen O2 Source Room air PD Medical Decision Making - ED course ED course: Patient presents for dental pain due to suspected dental ruth vs abscess. Patient not immunosuppressed, afebrile and well appearing with patent airway, have low suspicfion for deep space infection or any concern for airway compromise. Based on history, physical, and work up. Pt does have very overall poor dentition with multiple eroding teeth. No evidence of RPA, CREATIVE PERFUMER, [place]igs angina, periapical abscess. Offered patient dental nerve block for pain which patient declined. Instructed patient to continue to treat pain with ibuprofen/acetaminophen until they see a dentist. Patient started on Augmentin And has an appointment with [facility] dental clinic in a couple weeks. Patient discharged home and will follow up with dentist. Patient left prior to formal discharge was unable to speak with him at discharge teaching return precautions. Departure - Departure Disposition: Home, Self Care Clinical Impression: Dental infection, Poor dentition Instructions: ED Abscess Dental Prescriptions: Amox/Clav 875/125 [Augmentin 875/125 Tab] 1 tablet PO Q12H 7 Days #14 tablet Forms: PCP List Discharge Date/Time: 03/07/24 21:30
[2024-03-07] MEDS: ACETAMINOPHEN 500 MG TABLET PO STA (21:07)
[2024-03-07] MEDS: AMOX/CLAV 875 MG/125 MG TABLET PO STA (21:07)
[2024-03-07] MEDS ORDERED: BUPIVACAINE 0.25% PF 10 ML VIAL ONE (21:21)
[2024-03-07] MEDS: BUPIVACAINE 0.25% PF 30 ML VIAL SUBQ STA (21:25)
== END 2024-03-07 21:30 | disposition home or self-care (01) ==
LOC: ED 20:11
DX: K04.7 Periapical abscess without sinus (principal); I10 Essential (primary) hypertension; F17.200 Nicotine dependence, unspecified, uncomplicated; Z79.899 Other long term (current) drug therapy
CPT/HCPCS: 99283; A9270